=== PATIENT | male | born 1995 | race Asian ===

== ENCOUNTER → 2020-01-01 | Outpatient (CLI) | payer BC, SELFPAY ==
--- NOTE | 2020-01-02 09:53 | BRONCHALL ---
Bronchoprovocation Challenge - Bronchoprovocation Challenge Bronchoprovocation Challenge: INTRODUCTION: The patient is a 24-year-old male who presents for a methacholine challenge secondary to a diagnosis of pretesting for enlistment. Respiratory therapist reported good patient effort and reproducible results. INTERPRETATION: Initial spirometry did not show any large airways obstructive ventilatory defect and preserved airflows throughout. The patient was then given progressively increasing doses of methacholine in a standardized fashion. At no point during the test did the patient meet the threshold criteria of a drop in FEV1 by 20% to be considered a positive test. IMPRESSION: Negative methacholine challenge.
== END | disposition home or self-care (01) ==
LOC: PSN 07:05
DX: J45.990 Exercise induced bronchospasm (principal)
CPT/HCPCS: 94070; 95070; J3490; J7674